=== PATIENT | female | born 1970 | race Caucasian/White ===

== ENCOUNTER 2019-10-11 09:43 | Emergency (ER) | payer OTHER ==
[~2019-10-11] VITALS: Ht 152.4 cm; Wt 72.6 kg
== END 2019-10-11 13:26 | disposition home or self-care (01) ==
LOC: ER 09:43
DX: R10.32 Left lower quadrant pain (principal); R10.12 Left upper quadrant pain; R30.0 Dysuria; Z03.818 Encounter for observation for suspected exposure to other biological agents ruled out